=== PATIENT | male | born 1990 | race Caucasian/White ===

== ENCOUNTER 2018-06-08 05:36 | Emergency (ER) | payer MEDICAID ==
[2018-06-08] MEDS ORDERED: DEXAMETHASONE 10 MG/ML VIAL PO STA (05:46)
[2018-06-08] MEDS ORDERED: IBUPROFEN 600 MG TABLET PO STA (05:46)
[2018-06-08 05:52] VITALS: BP 125/75
--- NOTE | 2018-06-08 05:59 | ED Physician Documentation ---
PD HPI HEENT - Stated complaint Stated Complaint: SORE THROAT - History obtained from History obtained from: Patient - History of Present Illness Timing - onset: How many days ago (2) Timing - details: Gradual onset Location: Throat Worsens: Swalllowing Associated symptoms: No: Fever Similar symptoms before: Work up / diagnostics Recently seen: Emergency Dept - Additional information Additional information: Patient is a 28 year old male presenting to the emergency department for sore throat. Patient states that he had strep throat about a month ago and feels like it is coming back. Patient states that he did take his medications but he missed a few doses. Review of Systems Ten Systems: 10 systems reviewed and negative Constitutional: denies: Fever, Chills Nose: denies: Rhinorrhea / runny nose, Congestion Throat: reports: Sore throat PD PAST MEDICAL HISTORY - Past Surgical History Past Surgical History: Yes - Present Medications Home Medications: Ambulatory Orders Medication Instructions Recorded Confirmed Doxycycline Monohydrate 100 mg PO BID #20 tablet 05/01/16 - Allergies Allergies/Adverse Reactions: Allergies Allergy/AdvReac Type Severity Reaction Status Date / Time No Known Drug Allergies Allergy Verified 06/08/18 05:47 - Social History Does the pt smoke?: No Smoking Status: Never smoker Does the pt drink ETOH?: Yes Does the pt have substance abuse?: No PD ED PE NORMAL - Vitals Vital signs reviewed: Yes - General General: Alert and oriented X 3, No acute distress - HEENT HEENT: Atraumatic - Cardiac Cardiac: RRR - Respiratory Respiratory: No respiratory distress - Derm Derm: Normal color, No rash - Extremities Extremities: No deformity - Neuro Neuro: Alert and oriented X 3, No motor deficit, Normal speech Eye Opening: Spontaneous PD ED PE EXPANDED - HEENT HEENT: Pharyngeal erythema, Tonsillar exudate Results - Vitals Vitals: Vital Signs - 24 hr 06/08/18 05:47 Temperature 36.5 C Heart Rate 65 Respiratory 18 Rate Blood Pressure 125/75 O2 Saturation 100 Oxygen O2 Source Room air - Labs Labs: Laboratory Tests 06/08/18 05:45 Group A Strep Rapid POSITIVE H PD MEDICAL DECISION MAKING - ED course Complexity details: reviewed old records, reviewed results, re-evaluated patient , considered differential, d/w patient ED course: Patient was seen and examined at bedside. rapid strep was performed and was positive. Patient was treated with decadron, ibuprofen and bicillin. patient required no further inpatient work up and was stable for discharge with outpatient followup. - Sepsis Event Vital Signs: Vital Signs - 24 hr 06/08/18 05:47 Temperature 36.5 C Heart Rate 65 Respiratory 18 Rate Blood Pressure 125/75 O2 Saturation 100 Oxygen O2 Source Room air Departure - Departure Disposition: 01 Home, Self Care Clinical Impression: Strep throat Condition: Good Instructions: ED Strep Pharyngitis Conf Follow-Up: primary,care provider [Other] - As Needed Comments: Your symptoms today are being caused by strep throat. you have been treated with antibiotics and you should not need any other treatment. You should start to improve in the next 24 hours. you can take motrin or tylenol as needed for pain and use throat lozenges as well. you should follow up with your doctor if your symptoms persist. you may return to the emergency department at any time for new, worsening or uncontrollable symptoms. Discharge Date/Time: 06/08/18 06:26
[2018-06-08] MEDS ORDERED: PENICILLIN G BENZATHINE 600,000 UNIT/ML SYRINGE IM STA (06:10)
== END 2018-06-08 06:26 | disposition home or self-care (01) ==
LOC: ED 05:36
DX: J02.0 Streptococcal pharyngitis (principal)
CPT/HCPCS: 87430; 99283

== ENCOUNTER 2019-08-01 16:07 | Emergency (ER) | payer MEDICAID | END 2019-08-01 17:32 | disposition left against medical advice (07) | LOC: ED 16:07 | DX: Z53.21 Procedure and treatment not carried out due to patient leaving prior to being seen by health care provider (principal) ==

== ENCOUNTER 2019-09-17 16:48 | Emergency (ER) | payer MEDICAID ==
--- NOTE | 2019-09-17 17:58 | ED Physician Documentation ---
PD HPI HEENT - Stated complaint Stated Complaint: BUMPS IN MOUTH - Chief complaint Chief Complaint: General - History obtained from History obtained from: Patient - History of Present Illness Timing - onset: Today Timing - details: Abrupt onset Location: Mouth (Left side of tongue) Associated symptoms: No: Fever, Swollen nodes Similar symptoms before: Has not had sx before Recently seen: Not recently seen - Additional information Additional information: This is a 29-year-old man who presents with complaints that he noticed some bumps on the left side of his tongue with swelling and tenderness today. Yesterday he felt a little unwell just, achy tired and fatigued. He has not been running a fever. He has not noted any other rash. Denies history of herpes. He is in a new relationship and takes a an HIV preventative medication. He gets tested every 6 months through his primary care provider for syphilis. He gets tested every 3 months for HIV gonorrhea and chlamydia. He is been vaccinated against hepatitis B and denies history of hep C. Also tells me he has an HPV lesion in his groin that he is going to have frozen off. He has been under a lot of stress at work. He does not recall biting his tongue. Review of Systems Constitutional: denies: Fever Nose: denies: Rhinorrhea / runny nose, Congestion Throat: reports: Oral lesions / sores : denies: Discharge Skin: reports: Lesions PD PAST MEDICAL HISTORY - Past Surgical History Past Surgical History: Yes - Present Medications Home Medications: Ambulatory Orders Medication Instructions Recorded Confirmed Doxycycline Monohydrate 100 mg PO BID #20 tablet 05/01/16 - Allergies Allergies/Adverse Reactions: Allergies Allergy/AdvReac Type Severity Reaction Status Date / Time No Known Drug Allergies Allergy Verified 09/17/19 16:53 - Social History Does the pt smoke?: No Smoking Status: Never smoker Does the pt drink ETOH?: Yes Does the pt have substance abuse?: No PD ED PE NORMAL - Vitals Vital signs reviewed: Yes - General General: Alert and oriented X 3, Well developed/nourished, Other (Appears very anxious. Keeps asking repetitive questions.) - HEENT HEENT: Atraumatic, PERRL, EOMI, Moist mucous membranes, Other (On the left lateral tongue is just a very minor erosion. There is a red papular area at his sublingual salivary gland duct. There are no other intraoral lesions noted.) - Neck Neck: No adenopathy, Other (There are no axillary lymph nodes swollen.) - Neuro Neuro: Alert and oriented X 3, Normal speech - Psych Psych: Other (He is anxious.) Results - Vitals Vitals: Vital Signs - 24 hr 09/17/19 16:53 Temperature 36.9 C Heart Rate 82 Respiratory 15 Rate O2 Saturation 99 Oxygen O2 Source Room air PD MEDICAL DECISION MAKING - ED course Complexity details: d/w patient ED course: Patient's reassured that this does not have a distinct appearance of syphilis per se. He does get tested every 6 months. Does not have a distinct appearance of herpes either. We talked about drawing syphilis HSV and HIV titers today however he has declined that after discussion. I recommended salt water swishes and follow-up with his primary care provider for his routine STD testing or follow-up sooner if the lesion is growing dramatically, he develops a fever or other rash. Departure - Departure Disposition: 01 Home, Self Care Clinical Impression: Canker sores oral Condition: Good Instructions: ED Canker Sore Follow-Up: dr guille [Other] Comments: Salt water swishes 2-3 times a day. Avoid aggressively rubbing or brushing this with your toothbrush. Keep your routine appointment with your primary care provider for your recurrent testing. Follow-up with them or return if this lesion is growing, becomes more painful, you develop a fever or other rash.
== END 2019-09-17 18:16 | disposition home or self-care (01) ==
LOC: ED 16:48
DX: K12.0 Recurrent oral aphthae (principal)
CPT/HCPCS: 99281; 99284